=== PATIENT | female | born 1940 | race American Indian/Alaskan Native ===

== ENCOUNTER 2017-10-20 09:27 | Emergency (ER) | payer MEDICARE ==
[2017-10-20 10:19] VITALS: BP 189/50
--- NOTE | 2017-10-20 10:47 | Emergency Department Report ---
HPI - General Chief Complaint: Weakness Time Seen by Provider: 10/20/17 10:27 - HPI HPI: Room 23 The patient is 77-year-old female presenting with a chief complaint of altered mental status. Family states for the past 3 days patient appeared groggy and not like herself. The patient states she does not feel well but will not give specific symptoms. Family states the patient has had decreased appetite yesterday and difficulty sleeping last night. There has been no history of fever, nausea or vomiting. The patient has had diarrhea for the past 2-3 days. There has been no recent antibiotic use. When asked how she is feeling the patient replies she "feel[s] bad." Location: Mental State Duration: 3 days Quality: Altered/sluggish Severity: Moderate Modifying factors: [see above] Context: [see above] Mode of transportation: [not driving] ED Past Medical Hx - Past Medical History Hx Diabetes: Yes Hx Renal Disease: Yes (ESRD) - Surgical History Additional Surgical History: bilateral BKA, - Family History Family history: no significant - Social History Smoking Status: Never Smoker Substance Use Type: None - Medications Home Medications: Home Medications Medication Instructions Recorded Confirmed Last Taken Type Duloxetine HCl [DULoxetine] 30 mg PO DAILY 10/20/17 10/20/17 10/19/17 History Gabapentin [Neurontin] 100 mg PO Q8HR 10/20/17 10/20/17 Unknown History ED Review of Systems ROS: Stated complaint: SLUGGISH Other details as noted in HPI Constitutional: denies: fever Gastrointestinal: denies: nausea, vomiting Neurological: other (altered mental status) Physical Exam - Physical Exam Vital Signs: Vital Signs 10/20/17 10:12 Temperature 97.7 F Pulse Rate 58 L Respiratory 18 Rate Blood Pressure 189/50 Blood Pressure 189/50 [Right] O2 Sat by Pulse 97 Oximetry Physical Exam: GENERAL: The patient is well-developed well-nourished female lying on stretcher not appearing to be in acute distress. [] HEENT: Normocephalic. Atraumatic. Patient has moist mucous membranes. NECK: Trachea midline CHEST/LUNGS: Clear to auscultation. There is no respiratory distress noted. HEART/CARDIOVASCULAR: Regular. There is no tachycardia. There is no gallop rub or murmur. ABDOMEN: Abdomen is soft, nontender. Patient has normal bowel sounds. There is no abdominal distention. SKIN: There is no rash. There is no edema. There is no diaphoresis. NEURO: The patient is awake. The patient is cooperative. The patient has normal speech. Patient hard of hearing MUSCULOSKELETAL: There is no evidence of acute injury. ED Course Vital Signs 10/20/17 10:12 Temperature 97.7 F Pulse Rate 58 L Respiratory 18 Rate Blood Pressure 189/50 Blood Pressure 189/50 [Right] O2 Sat by Pulse 97 Oximetry - Consultations Consultation #1: 10/20/17 11:47 Nephrology paged 10/20/17 12:08 Case discussed with Barbie nurse practitioner ED Medical Decision Making - Lab Data Result diagrams: 10/20/17 10:50 10/20/17 10:50 Laboratory Tests 10/20/17 10/20/17 10/20/17 10:50 10:50 10:50 WBC 4.4 L RBC 4.76 Hgb 12.2 Hct 40.1 MCV 84 MCH 26 L MCHC 30 RDW 17.2 H Plt Count 238 Lymph % (Auto) 25.9 [place] % (Auto) 10.8 H Eos % (Auto) 7.2 H Baso % (Auto) 1.1 Lymph # 1.1 L [place] # 0.5 Eos # 0.3 Baso # 0.0 Seg Neutrophils % 55.0 Seg Neutrophils # 2.4 PT INR APTT Sodium 142 Potassium 6.0 H Chloride 99.3 Carbon Dioxide 30 Anion Gap 19 BUN 35 H Creatinine 4.6 H Estimated GFR 11 BUN/Creatinine Ratio 8 Glucose 127 H Calcium 9.7 Total Bilirubin 0.50 AST 21 ALT 10 Alkaline Phosphatase 276 H Ammonia Total Creatine Kinase CK-MB (CK-2) CK-MB (CK-2) Rel Index Troponin T Total Protein 7.2 Albumin 4.1 Albumin/Globulin Ratio 1.3 TSH 3.260 Free T4 1.06 10/20/17 10/20/17 10/20/17 10:50 10:50 10:50 WBC RBC Hgb Hct MCV MCH MCHC RDW Plt Count Lymph % (Auto) [place] % (Auto) Eos % (Auto) Baso % (Auto) Lymph # [place] # Eos # Baso # Seg Neutrophils % Seg Neutrophils # PT 13.7 INR 1.00 APTT 34.3 Sodium Potassium Chloride Carbon Dioxide Anion Gap BUN Creatinine Estimated GFR BUN/Creatinine Ratio Glucose Calcium Total Bilirubin AST ALT Alkaline Phosphatase Ammonia 26.0 Total Creatine Kinase 33 CK-MB (CK-2) 1.9 CK-MB (CK-2) Rel Index 5.7 H Troponin T 0.113 H* Total Protein Albumin Albumin/Globulin Ratio TSH Free T4 - EKG Data -: EKG Interpreted by Me EKG shows normal: sinus rhythm Rate: bradycardia (52 bpm) - EKG Data When compared to previous EKG there are: previous EKG unavailable Interpretation: nonspecific ST-T wave ana (T-wave inversions in leads V2, V3. Biphasic T waves in leads 3 and aVF) - Radiology Data Radiology results: report reviewed (CT head), image reviewed (CT head) CT HEAD WITHOUT CONTRAST: HISTORY: Altered mental status. TECHNIQUE: Sequential CT images without contrast. FINDINGS: Non-contrast CT of the head is submitted demonstrating central and cortical atrophy. There are low density changes in the periventricular white matter. There is no intracranial hemorrhage or mass effect. There is no shift of the midline. Basilar cisterns are patent. The included portions of the paranasal sinuses and mastoid air cells are clear. IMPRESSION: Senescent changes as noted. No acute intracranial process. Transcribed By: TTR Dictated By: FAUSTINO LEONARDO JR, MD Electronically Authenticated By: FAUSTINO LEONARDO JR, MD Signed Date/Time: 10/20/171113 DD/ 12 TD/TT: 10/20/17 111 - Differential Diagnosis altered mental status, ICH, hypoglycemia Critical care attestation.: If time is entered above; I have spent that time in minutes in the direct care of this critically ill patient, excluding procedure time. ED Disposition Clinical Impression: Altered mental status, Hyperkalemia, End stage renal disease Disposition: OP ADMIT IP TO THIS HOSP Is pt being admited?: Yes Does the pt Need Aspirin: Yes Condition: Fair Referrals: PRIMARY CAREMD [Primary Care Provider] - 3-5 Days Time of Disposition: 12:08 (hospitalist paged)
[2017-10-20 11:16] LABS: Basophils % (Auto) 1.1 % (0.0-1.8); Eosinophils # (Auto) 0.3 K/mm3 (0.0-0.4); Eosinophils % (Auto) 7.2 % (0.0-4.3); Lymphocytes # (Auto) 1.1 K/mm3 (1.2-5.4); Lymphocytes % (Auto) 25.9 % (13.4-35.0); Mean Corpuscular HGB Conc 30 % (30-34); Mean Corpuscular Volume 84 fl (79-97); Monocytes # (Auto) 0.5 K/mm3 (0.0-0.8); Monocytes % (Auto) 10.8 % (0.0-7.3); Platelet Count 238 K/mm3 (140-440); Red Blood Count 4.76 M/mm3 (3.65-5.03); Red Cell Distribution Width 17.2 % (13.2-15.2)
[2017-10-20 11:17] LABS: Hematocrit 40.1 % (30.3-42.9); Hemoglobin 12.2 gm/dl (10.1-14.3); Mean Corpuscular Hemoglobin 26 pg (28-32)
[2017-10-20 11:27] LABS: Partial Thromboplastin Time 34.3 Sec. (24.2-36.6)
--- NOTE | 2017-10-20 11:31 | Cat Scan Report ---
CT HEAD WITHOUT CONTRAST: HISTORY: Altered mental status. TECHNIQUE: Sequential CT images without contrast. FINDINGS: Non-contrast CT of the head is submitted demonstrating central and cortical atrophy. There are low density changes in the periventricular white matter. There is no intracranial hemorrhage or mass effect. There is no shift of the midline. Basilar cisterns are patent. The included portions of the paranasal sinuses and mastoid air cells are clear. IMPRESSION: Senescent changes as noted. No acute intracranial process.
[2017-10-20 11:32] LABS: Creatine Kinase MB 1.9 ng/mL (0.0-4.0)
[2017-10-20 11:34] LABS: Albumin 4.1 g/dL (3.9-5); Calcium 9.7 mg/dL (8.4-10.2)
[2017-10-20 11:43] LABS: Free T4 (Free Thyroxine) 1.06 ng/dL (0.76-1.46)
[2017-10-20 12:03] LABS: Chol/HDL Ratio 2.37 %
[2017-10-20] MEDS ORDERED: SODIUM BICARBONATE IV ONE ×2 (12:06→13:00)
[2017-10-20] MEDS ORDERED: ASPIRIN PO ONE (12:06)
[2017-10-20] MEDS ORDERED: D50W (25GM) Syringe IV ONE (12:06)
[2017-10-20] MEDS ORDERED: PROVENTIL IH ONE (12:06)
[2017-10-20] MEDS ORDERED: ZOFRAN IV PRN (12:50)
[2017-10-20] MEDS ORDERED: DULCOLAX PR PRN (12:50)
[2017-10-20] MEDS ORDERED: TYLENOL PO PRN (12:50)
[2017-10-20] MEDS ORDERED: MILK OF MAGNESIA PO PRN (12:50)
--- NOTE | 2017-10-20 12:50 | History and Physical Report ---
History of Present Illness Chief complaint: Confusion, Weakness History of present illness: 77 YO Female with ESRD on HD, DM, PVD presents to ED for evaluation. Pt confused , stuporous and unable to provide history. Pt history provided by daughters who are at bedside during exam and interview. Family states for the past 3 days patient has been confused, with decreased appetite, decreased interaction with family and declining health status. Pt family states that patient stated previously that she does not want to continue dialysis. PT seen and evaluated in ED and found to have poor prognosis. Pt prognosis discussed with family, and family elects to make patient DNR, and have patient go home with home hospice care. Past History Past Medical History: diabetes, ESRD Past Surgical History: Other (Bilateral BKA, AV Fistula) Social history: , lives with family. denies: smoking, alcohol abuse, prescription drug abuse Family history: hypertension Medications and Allergies Allergies Allergy/AdvReac Type Severity Reaction Status Date / Time No Known Allergies Allergy Unverified 10/20/17 10:19 Home Medications Medication Instructions Recorded Confirmed Last Taken Type Duloxetine HCl [DULoxetine] 30 mg PO DAILY 10/20/17 10/20/17 10/19/17 History Gabapentin [Neurontin] 100 mg PO Q8HR 10/20/17 10/20/17 Unknown History Active Meds: Active Medications Sodium Bicarbonate (Sodium Bicarbonate) 50 meq IV ONCE ONE Stop: 10/20/17 13:01 Review of Systems ROS unobtainable: due to mental status Exam - Constitutional Vitals: Temp Pulse Resp BP Pulse Ox 97.7 F 58 L 18 189/50 97 10/20/17 10:12 10/20/17 10:12 10/20/17 10:12 10/20/17 10:12 10/20/17 10:12 General appearance: Present: severe distress - EENT Eyes: Present: miosis ENT: poor dentition - Neck Neck: Present: supple, normal ROM, masses or JVD - Respiratory Respiratory effort: labored Respiratory: bilateral: diminished - Cardiovascular Heart Sounds: Present: S1 & S2. Absent: rub, click - Extremities Extremities: pulses symmetrical, No edema Extremity abnormal: edema Peripheral Pulses: within normal limits - Abdominal General gastrointestinal: Present: soft, non-tender, non-distended, normal bowel sounds Female genitourinary: Present: normal - Integumentary Integumentary: Present: clear, dry - Musculoskeletal Musculoskeletal: generalized weakness - Psychiatric Psychiatric: no intact judgment & insight, no memory intact Results - Labs CBC & Chem 7: 10/20/17 10:50 10/20/17 10:50 Labs: Abnormal lab results 10/20/17 10/20/17 10/20/17 Range/Units 10:50 10:50 10:50 WBC 4.4 L (4.5-11.0) K/mm3 MCH 26 L (28-32) pg RDW 17.2 H (13.2-15.2) % [place] % (Auto) 10.8 H (0.0-7.3) % Eos % (Auto) 7.2 H (0.0-4.3) % Lymph # 1.1 L (1.2-5.4) K/mm3 Potassium 6.0 H (3.6-5.0) mmol/L BUN 35 H (7-17) mg/dL Creatinine 4.6 H (0.7-1.2) mg/dL Glucose 127 H (65-100) mg/dL POC Glucose (70-105) Alkaline Phosphatase 276 H (35-129) units/L CK-MB (CK-2) Rel Index 5.7 H (0-4) Troponin T 0.113 H* (0.00-0.029) ng/mL HDL Cholesterol 74 H (40-59) mg/dL 10/20/17 Range/Units 12:41 WBC (4.5-11.0) K/mm3 MCH (28-32) pg RDW (13.2-15.2) % [place] % (Auto) (0.0-7.3) % Eos % (Auto) (0.0-4.3) % Lymph # (1.2-5.4) K/mm3 Potassium (3.6-5.0) mmol/L BUN (7-17) mg/dL Creatinine (0.7-1.2) mg/dL Glucose (65-100) mg/dL POC Glucose 146 H (70-105) Alkaline Phosphatase (35-129) units/L CK-MB (CK-2) Rel Index (0-4) Troponin T (0.00-0.029) ng/mL HDL Cholesterol (40-59) mg/dL Assessment and Plan - Patient Problems (1) End stage renal disease Status: Acute Plan to address problem: Pt declines further care, Pt DNR, Hospice consulted. Pt discharged home to home hospice under care of medical screener as per family request. Pt hospice options discussed. Pt family chose hospice care provider. (2) Encephalopathy Status: Acute Plan to address problem: Metabolic: Secondary to ESRD. Pt family elects to have hospice care at home. (3) Debility Status: Acute
[2017-10-20] MEDS ORDERED: KIONEX PO ONE (12:52)
[2017-10-20] MEDS ORDERED: CALCIUM GLUCONATE 1,000 MG in NACL 0.9% 100 ML IV ONE (12:52)
[2017-10-20] MEDS ORDERED: NEURONTIN PO SCH (14:00)
--- NOTE | 2017-10-20 15:06 | Consultation ---
History of Present Illness - History of Present Illness Thank you for the consultation patient was evaluated today. Source of information; History of presenting illness; Patient is 77-year-old -[place] female who has been brought here with altered mental status she is also currently dependent on dialysis, due to end- stage renal disease. According to her daughter as other as well as other family member at the bedside patient has not been feeling well and has been doing very poorly for the last 2-3 days. Patient has also been experiencing some diarrhea for the last 2-3 days without any fever or chills mentation has not improved. Due to declining health and worsening quality of life family has decided to go to hospice at this point and they are all in agreement of the bedside. She upon arrival was noted to have a beer and a 35 creatinine 4.6 potassium was 6.0 for which hemodialysis was ordered Past medical history significant for Anemia and end-stage renal disease Secondary hyperparathyroidism End-stage renal disease Diabetes mellitus type 2 Bilateral below-knee amputation Current allergies none Home medication Duolexitin Gabapentin Social history unable to obtain due to altered mental status patient has been she used to live with her family Family history: Positive hypertension Review of systems unable to obtain Labs and x-rays: Were reviewed from the current chart Physical examination General: No acute distress/Estring comfortably hard to arouse HEENT: Oral mucosa moist no pharyngeal erythema no pallor or icterus no uremic order Neck: Supple no evidence of any thyromegaly trachea midline no JVD Chest: Clear to auscultation no crackles are also wheezes anteriorly Heart: Regular rate and rhythm S1-S2 heard no S3-S4 Abdomen: Soft nontender no renal bruit no CVA tenderness no suprapubic fullness no organomegaly Extremity: he is on PUD Neurological: patient is essentially lethargic and not responding well Back: Nontender thoracolumbar spine Musculoskeletal: No joint effusion noted Skin: No petechial rash/noted Assessment and plan end-stage renal disease patient's family has decided to go with hospice at this time they do not want to proceed with dialysis Hyperkalemia hemodialysis was ordered Abnormal troponin likely resulting from ESRD According to the family patient's quality of life has been very poor no further intervention is required at this time as this is year to evaluate the patient for family's request would sign off the case please call if needed I met with the family members at the bedside and answered all the questions and they feel very comfortable going with hospice at this time they do not want to proceed with hemodialysis or any additional testing or treatments If you have any questions please feel free to contact me at [phone] Medications and Allergies Allergies Allergy/AdvReac Type Severity Reaction Status Date / Time No Known Allergies Allergy Unverified 10/20/17 10:19 Home Medications Medication Instructions Recorded Confirmed Last Taken Type Duloxetine HCl [DULoxetine] 30 mg PO DAILY 10/20/17 10/20/17 10/19/17 History Gabapentin [Neurontin] 100 mg PO Q8HR 10/20/17 10/20/17 Unknown History Active Meds: Active Medications Acetaminophen (Tylenol) 650 mg PO Q4H PRN PRN Reason: Pain MILD(1-3)/Fever >100.5/GRIMM Bisacodyl (Dulcolax) 10 mg DC QDAY PRN PRN Reason: Constipation unrelieved by MOM Duloxetine HCl (Cymbalta) 30 mg PO DAILY MADHAV Gabapentin (Neurontin) 100 mg PO Q8HR MADHAV Last Admin: 10/20/17 14:49 Dose: Not Given Magnesium Hydroxide (Milk Of Magnesia) 30 ml PO Q4H PRN PRN Reason: Constipation Ondansetron HCl (Zofran) 4 mg IV Q8H PRN PRN Reason: N/V unrelieved by Reglan Exam - Vital Signs Vital signs: Vital Signs Temp Pulse Resp BP Pulse Ox 97.7 F 58 L 18 189/50 97 10/20/17 10:12 10/20/17 10:12 10/20/17 10:12 10/20/17 10:12 10/20/17 10:12 Results - Lab Results 10/20/17 10:50 10/20/17 10:50 Most recent lab results Calcium 9.7 mg/dL (8.4-10.2) 10/20/17 10:50
[2017-10-21] MEDS ORDERED: CYMBALTA PO SCH (10:00)
== END 2017-10-20 17:59 | disposition admitted as inpatient to this hospital (09) ==
LOC: ED 09:27
DX: E87.5 Hyperkalemia (principal); E11.22 Type 2 diabetes mellitus with diabetic chronic kidney disease; N18.6 End stage renal disease; R41.82 Altered mental status, unspecified
CPT/HCPCS: 36415; 70450; 80053; 80061; 82140; 82550; 82553; 82962; 84439; 84443; 84484; 85025; 85610; 85730; 93005; 93010; 94640; 99285; J0610; J1815